=== PATIENT | female | born 1995 | race Caucasian/White ===

== ENCOUNTER 2018-05-27 05:01 | Emergency (ER) | payer OTHER ==
[~2018-05-27] VITALS: Ht 167.6 cm; Wt 60.2 kg
[2018-05-27 05:07] VITALS: BP 131/87
--- NOTE | 2018-05-27 05:52 | NUR ---
PT TAKEN TO US WITH TECH AT THIS TIME.
[2018-05-27 06:30] LABS: ALBUMIN 3.5 g/dL (3.4-5.0); ANION GAP 4 mmol/L (5-15); CALCIUM 8.4 mg/dL (8.5-10.1); CHLORIDE 110 mmol/L (98-107); CREATININE 0.84 mg/dL (0.55-1.02)
[2018-05-27 06:34] LABS: BASOPHILS # (AUTO) 0.02 x10^3/uL (0-0.1); BASOPHILS % (AUTO) 0 % (0-1); EOSINOPHILS # (AUTO) 0.11 x10^3/uL (0-0.4); EOSINOPHILS % (AUTO) 1 % (1-7); LYMPHOCYTES # (AUTO) 1.94 x10^3/uL (1-3.4); LYMPHOCYTES % (AUTO) 20 % (22-44); MD NO; MEAN CORPUSCULAR HEMOGLOBIN 31.4 pg (27.0-34.8); MEAN CORPUSCULAR HGB CONC 34.2 g/dL (32.4-35.8); MEAN CORPUSCULAR VOLUME 91.9 fL (80-100); MEAN PLATELET VOLUME 8.2 fL (7.4-10.4); MONOCYTES # (AUTO) 0.67 x10^3/uL (0.2-0.8); MONOCYTES % (AUTO) 7 % (2-9); NEUTROPHILS # (AUTO) 6.92 x10^3/uL (1.8-6.8); NEUTROPHILS % (AUTO) 72 % (42-75); PLATELET COUNT 289 x10^3/uL (130-400); RED BLOOD COUNT 4.66 x10^6/uL (3.82-5.3); RED CELL DISTRIBUTION WIDTH 13.1 % (9.6-15.2)
--- NOTE | 2018-05-27 07:03 | NUR ---
[facility] HAND-OFF REPORT RECEIVED FROM EVELIA ERNANDEZ. ASSUMING CARE OF PATIENT. WAYLON TAM AT BEDSIDE.
--- NOTE | 2018-05-27 07:59 | NUR ---
Patient/Caregiver given discharge instructions and they have confirmed that they understand the instructions. Patient ambulatory with steady gait.
== END 2018-05-27 08:00 | disposition home or self-care (01) ==
LOC: ED 07:11
DX: O03.9 Complete or unspecified spontaneous abortion without complication (principal)
CPT/HCPCS: 36415; 76830; 80048; 82040; 84702; 85025; 86901; 99284